=== PATIENT | male | born 1990 | race Two or more races ===

== ENCOUNTER 2016-08-23 14:26 | Inpatient (IN) | payer SELFPAY ==
[2016-08-23] MEDS ORDERED: [UNRECOGNIZED DRUG - OTHER] (15:44)
[2016-08-23] MEDS ORDERED: DULCOLAX10 MG (15:44)
[2016-08-23 16:00] LABS: BASO % 0.2 % (0-2); EOS % 0.7 % (0-7); HCT-HEMATOCRIT 27.4 % (36.0-53.5); HGB-HEMOGLOBIN 7.1 gm/dl (13.5-17.0); IMMATURE GRANULOCYTES ABSOLUTE 0.01 tho/cmm (0-0.03); IMMATURE GRANULOCYTES PERCENT 0.2 % (0-0.3); LYMPH % 33.1 % (20-45); LYMPH ABSOLUTE COUNT 1.4 tho/cmm (0.8-4.5); MCV (MEAN CELL VOLUME) 59.3 fl (82.0-96.0); MONOCYTE ABSOLUTE COUNT 0.8 tho/cmm (0.0-1.2); NEUTROPHIL ABSOLUTE COUNT 1.9 tho/cmm (1.6-8.0); NEUTROPHIL-AUTOMATED 1.9 tho/cmm (1.6-8.0); NEUTROPHILS % 45.8 % (40-80); RED BLOOD COUNT 4.62 mil/cmm (4.40-5.70); WHITE BLOOD COUNT 4.1 tho/cmm (4.0-10.0)
[2016-08-23 16:05] LABS: MCH (MEAN CORPUSCULAR HGB) 15.4 pg (28.0-32.0); MCHC MEAN CORPUSCULAR HGB CONC 25.9 % (32.0-36.0)
[2016-08-23 16:30] LABS: INR 1.5 INR (0.9-1.1); PROTHROMBIN TIME 17.9 SECONDS (9.0-13.6)
[2016-08-23 16:44] LABS: ALB/GLOB RATIO 1.1 (0.8-2.0); ALBUMIN 4.7 g/dl (3.5-5.0); ALKALINE PHOSPHATASE 68 U/L (33-138); ALT/SGPT 17 U/L (12-78); ANION GAP 11 mmol/L (0-20); AST/SGOT 20 U/L (10-40); BLOOD UREA NITROGEN 5 mg/dl (6-24); CARBON DIOXIDE-VENOUS 28 mmol/L (22-32); CHLORIDE 104 mmol/l (96-110); CREATININE 0.92 mg/dl (0.60-1.30); GLUCOSE 89 mg/dL (70-110); LIPASE 108 U/L (73-393); POTASSIUM 4.1 mmol/L (3.7-5.1); SODIUM 139 mmol/L (135-145); eGFR VALUE FOR BLACK >90 mL/Min
[2016-08-24 05:09] LABS: ALBUMIN 3.7 g/dl (3.5-5.0); ALKALINE PHOSPHATASE 53 U/L (33-138); ALT/SGPT 17 U/L (12-78); ANION GAP 9 mmol/L (0-20); AST/SGOT 14 U/L (10-40); BILIRUBIN,TOTAL 0.7 mg/dl (0.0-1.5); BLOOD UREA NITROGEN 5 mg/dl (6-24); CALCIUM 8.3 mg/dl (8.5-10.5); CARBON DIOXIDE-VENOUS 27 mmol/L (22-32); CHLORIDE 110 mmol/l (96-110); GLUCOSE 93 mg/dL (70-110); POTASSIUM 4.1 mmol/L (3.7-5.1); SODIUM 142 mmol/L (135-145); eGFR VALUE FOR BLACK >90 mL/Min
[2016-08-24 05:11] LABS: BASO % 0.6 % (0-2); EOS % 1.8 % (0-7); EOSINOPHIL ABSOLUTE COUNT 0.1 tho/cmm (0.0-0.7); HCT-HEMATOCRIT 23.8 % (36.0-53.5); HGB-HEMOGLOBIN 6.2 gm/dl (13.5-17.0); IMMATURE GRANULOCYTES ABSOLUTE 0.02 tho/cmm (0-0.03); IMMATURE GRANULOCYTES PERCENT 0.6 % (0-0.3); LYMPH % 44.8 % (20-45); LYMPH ABSOLUTE COUNT 1.5 tho/cmm (0.8-4.5); MCH (MEAN CORPUSCULAR HGB) 15.6 pg (28.0-32.0); MCHC MEAN CORPUSCULAR HGB CONC 26.1 % (32.0-36.0); MCV (MEAN CELL VOLUME) 59.9 fl (82.0-96.0); MONO % 16.8 % (0-12); MONOCYTE ABSOLUTE COUNT 0.6 tho/cmm (0.0-1.2); NEUTROPHIL ABSOLUTE COUNT 1.2 tho/cmm (1.6-8.0); NEUTROPHIL-AUTOMATED 1.2 tho/cmm (1.6-8.0); NEUTROPHILS % 35.4 % (40-80); PLATELET COUNT 125 tho/cmm (150-450); RED BLOOD COUNT 3.97 mil/cmm (4.40-5.70); RED CELL DISTRIBUTION WIDTH 19.2 % (12.4-16.4); WHITE BLOOD COUNT 3.4 tho/cmm (4.0-10.0)
[2016-08-24 20:26] LABS: BASO % 0.6 % (0-2); EOS % 1.8 % (0-7); EOSINOPHIL ABSOLUTE COUNT 0.1 tho/cmm (0.0-0.7); HCT-HEMATOCRIT 30.4 % (36.0-53.5); IMMATURE GRANULOCYTES ABSOLUTE 0.01 tho/cmm (0-0.03); IMMATURE GRANULOCYTES PERCENT 0.2 % (0-0.3); LYMPH ABSOLUTE COUNT 2.1 tho/cmm (0.8-4.5); MCV (MEAN CELL VOLUME) 63.1 fl (82.0-96.0); MONO % 8.6 % (0-12); MONOCYTE ABSOLUTE COUNT 0.4 tho/cmm (0.0-1.2); NEUTROPHIL ABSOLUTE COUNT 2.3 tho/cmm (1.6-8.0); NEUTROPHIL-AUTOMATED 2.3 tho/cmm (1.6-8.0); NEUTROPHILS % 45.8 % (40-80); PLATELET COUNT 152 tho/cmm (150-450); RED BLOOD COUNT 4.82 mil/cmm (4.40-5.70); RED CELL DISTRIBUTION WIDTH 22.4 % (12.4-16.4); WHITE BLOOD COUNT 4.9 tho/cmm (4.0-10.0)
[2016-08-24 20:27] LABS: HGB-HEMOGLOBIN 8.3 gm/dl (13.5-17.0); MCH (MEAN CORPUSCULAR HGB) 17.2 pg (28.0-32.0); MCHC MEAN CORPUSCULAR HGB CONC 27.3 % (32.0-36.0)
--- NOTE | 2016-08-24 21:22 | NUR ---
VIRTUAL CARE NOTE: REVIEWED PLAN OF CARE WITH PT AND VN ROLE. PRINTED HANDOUTS EARLIER PER FLOOR RN REQUEST ABOUT EGD/COLONOSCOPY. PT WAS REVIEWING THEM AT THIS TIME. DENIES FURTHER QUESTIONS OR CONCERNS R/G PLAN, PROCEDURES, OR MEDICATIONS. ENCOURAGED FALL PRECAUTIONS AND TO NOTIFY STAFF WITH ANY NEEDS. PT V/U. WILL CONTINUE WITH CHART REVIEW.
--- NOTE | 2016-08-25 09:39 | NUR ---
VN ROUNDING-DID NOT ROUND ON PATIENT HE IS OUT OF ROOM AT PROCEDURE
[2016-08-25 12:02] LABS: INR 1.4 INR (0.9-1.1); PROTHROMBIN TIME 16.1 SECONDS (9.0-13.6)
[2016-08-25 12:03] LABS: BASO % 0.5 % (0-2); EOS % 2.5 % (0-7); EOSINOPHIL ABSOLUTE COUNT 0.1 tho/cmm (0.0-0.7); HGB-HEMOGLOBIN 8.2 gm/dl (13.5-17.0); LYMPH % 43.4 % (20-45); LYMPH ABSOLUTE COUNT 1.6 tho/cmm (0.8-4.5); MONO % 7.7 % (0-12); MONOCYTE ABSOLUTE COUNT 0.3 tho/cmm (0.0-1.2); NEUTROPHIL ABSOLUTE COUNT 1.7 tho/cmm (1.6-8.0); NEUTROPHIL-AUTOMATED 1.7 tho/cmm (1.6-8.0); NEUTROPHILS % 45.9 % (40-80); PLATELET COUNT 129 tho/cmm (150-450); RED BLOOD COUNT 4.76 mil/cmm (4.40-5.70); WHITE BLOOD COUNT 3.6 tho/cmm (4.0-10.0)
[2016-08-25 12:06] LABS: MCH (MEAN CORPUSCULAR HGB) 17.2 pg (28.0-32.0); MCHC MEAN CORPUSCULAR HGB CONC 27.3 % (32.0-36.0)
[2016-08-25 18:18] LABS: C-REACTIVE PROTEIN 0.3 mg/dl (0-0.9)
[2016-08-26 05:46] LABS: INR 1.4 INR (0.9-1.1)
[2016-08-26 05:48] LABS: BASO % 0.6 % (0-2); EOS % 2.4 % (0-7); EOSINOPHIL ABSOLUTE COUNT 0.1 tho/cmm (0.0-0.7); HCT-HEMATOCRIT 28.1 % (36.0-53.5); HGB-HEMOGLOBIN 7.8 gm/dl (13.5-17.0); LYMPH % 36.6 % (20-45); LYMPH ABSOLUTE COUNT 1.7 tho/cmm (0.8-4.5); MONO % 6.1 % (0-12); MONOCYTE ABSOLUTE COUNT 0.3 tho/cmm (0.0-1.2); NEUTROPHIL ABSOLUTE COUNT 2.5 tho/cmm (1.6-8.0); NEUTROPHIL-AUTOMATED 2.5 tho/cmm (1.6-8.0); NEUTROPHILS % 54.3 % (40-80); PLATELET COUNT 133 tho/cmm (150-450); RED BLOOD COUNT 4.53 mil/cmm (4.40-5.70); WHITE BLOOD COUNT 4.6 tho/cmm (4.0-10.0)
[2016-08-26 05:50] LABS: MCH (MEAN CORPUSCULAR HGB) 17.2 pg (28.0-32.0); MCHC MEAN CORPUSCULAR HGB CONC 27.8 % (32.0-36.0)
[2016-08-26] MEDS ORDERED: VITAMIN B-121000 MC1 PO (11:14)
[2016-08-26] MEDS ORDERED: FEOSOL325 M1 PO (11:15)
[2016-08-26] MEDS ORDERED: MIRALAX17 G2 PO (11:16)
[2016-08-26] MEDS ORDERED: FOLATE PO (11:16)
== END 2016-08-26 12:20 | DRG 812 ==
LOC: EDMED 14:26 → EMR2 18:27 → 5WD 21:00
PROVIDERS: Internal Medicine Critical Care Medicine; Internal Medicine Hematology & Oncology; Physician Assistant; Specialist; ADMIT Internal Medicine
PROC: 30233N1 Transfusion of Nonautologous Red Blood Cells into Peripheral Vein, Percutaneous Approach (ICD-10-PCS; 2016-08-24)
PROC: 0DB68ZX Excision of Stomach, Via Natural or Artificial Opening Endoscopic, Diagnostic (ICD-10-PCS; principal; 2016-08-25)
PROC: 0DJD8ZZ Inspection of Lower Intestinal Tract, Via Natural or Artificial Opening Endoscopic (ICD-10-PCS; 2016-08-25)
DX: D50.9 Iron deficiency anemia, unspecified (principal); D61.818 Other pancytopenia; D68.9 Coagulation defect, unspecified; E46 Unspecified protein-calorie malnutrition; R16.1 Splenomegaly, not elsewhere classified; Z68.1 Body mass index [BMI] 19.9 or less, adult; K92.2 Gastrointestinal hemorrhage, unspecified; E53.8 Deficiency of other specified B group vitamins; K59.00 Constipation, unspecified; K64.8 Other hemorrhoids
CPT/HCPCS: C9113; J3430; J7030; P9016; Q9967